=== PATIENT | female | born 1975 | race Two or more races ===

== ENCOUNTER 2017-10-16 15:34 | Outpatient (CLI) | payer OTHER | END 2017-10-16 16:51 | disposition home or self-care (01) | LOC: MAMO-SONO 15:34 | DX: Z12.31 Encounter for screening mammogram for malignant neoplasm of breast (principal) ==

== ENCOUNTER → 2021-03-24 08:46 | Outpatient (CLI) | payer OTHER | END | disposition home or self-care (01) | LOC: RAD 08:46 | PROVIDERS: ATTEND Orthopaedic Surgery | DX: S82.65XA Nondisplaced fracture of lateral malleolus of left fibula, initial encounter for closed fracture (principal) ==

== ENCOUNTER → 2021-05-15 08:31 | Outpatient (CLI) | payer OTHER | END | disposition home or self-care (01) | LOC: RAD 08:31 | PROVIDERS: ATTEND Orthopaedic Surgery | DX: S82.65XD Nondisplaced fracture of lateral malleolus of left fibula, subsequent encounter for closed fracture with routine healing (principal) ==

== ENCOUNTER → 2021-06-17 | Outpatient (CLI) | payer OTHER | END | disposition home or self-care (01) | LOC: NUCLEAR 06-03 13:30 | PROVIDERS: ATTEND Orthopaedic Surgery | DX: M81.0 Age-related osteoporosis without current pathological fracture (principal) ==

== ENCOUNTER 2021-07-01 12:26 | Outpatient (CLI) | payer OTHER | END 2021-07-01 12:37 | disposition home or self-care (01) | LOC: RAD 12:26 | PROVIDERS: ATTEND Orthopaedic Surgery | DX: S82.65XD Nondisplaced fracture of lateral malleolus of left fibula, subsequent encounter for closed fracture with routine healing (principal) ==

== ENCOUNTER 2021-09-21 11:37 | Outpatient (CLI) | payer OTHER | END 2021-09-21 11:43 | disposition home or self-care (01) | LOC: RAD 11:37 | PROVIDERS: ATTEND Orthopaedic Surgery | DX: M77.32 Calcaneal spur, left foot (principal); S82.65XG Nondisplaced fracture of lateral malleolus of left fibula, subsequent encounter for closed fracture with delayed healing ==

== ENCOUNTER 2023-03-09 13:52 | Outpatient (CLI) | payer OTHER | END 2023-03-09 14:00 | disposition home or self-care (01) | LOC: RAD 13:52 | PROVIDERS: ATTEND Orthopaedic Surgery | DX: M25.572 Pain in left ankle and joints of left foot (principal); M25.521 Pain in right elbow ==